=== PATIENT | female | born 1980 | race Caucasian/White ===

== ENCOUNTER 2020-05-26 05:59 | Emergency (ER) | payer OTHER, SELFPAY ==
--- NOTE | 2020-05-26 | XR_ITS ---
EXAMINATION: XR RIBS, RIGHT CLINICAL INFORMATION: Pain status-post fall. COMPARISON: Chest radiograph dated 06/03/2012 (report only). TECHNIQUE: 4 views of the left ribs were obtained. FINDINGS: Lungs are clear. No consolidation, pneumothorax, or pleural effusion. The cardiomediastinal silhouette and pulmonary vasculature are normal. Osseous structures are unremarkable. Ribs are intact. No fractures are identified. IMPRESSION: Unremarkable examination.
--- NOTE | 2020-05-26 | XR_ITS ---
EXAMINATION: CERVICAL SPINE AND RIGHT ELBOW X-RAY CLINICAL INFORMATION: Fall COMPARISON: None TECHNIQUE: 4 views of the cervical spine and 3 views of the right elbow FINDINGS: Right elbow: Bone alignment is normal. No fracture or dislocation is seen. The joint spaces are normal. There is no joint effusion. There is minimal soft tissue calcification or ossification adjacent to the lateral humeral epicondyle. There is a very small osteophyte at the triceps tendon insertion to the olecranon. Cervical spine: Bone alignment is normal. No fracture or dislocation is seen. The disc spaces are normal. Prevertebral soft tissues are normal. IMPRESSION: Cervical spine and right elbow: No fracture or dislocation seen.
--- NOTE | 2020-05-26 | XR_ITS ---
EXAMINATION: XR SHOULDER, RIGHT CLINICAL INFORMATION: Pain status-post fall. COMPARISON: None TECHNIQUE: AP external rotation and scapula Y views of the right shoulder are submitted. FINDINGS: The bones and soft tissues are normal. No fracture. Glenohumeral and acromioclavicular alignment is anatomic with normal joint space. No abnormal soft tissue calcifications. IMPRESSION: Normal right shoulder.
[2020-05-26 06:04] VITALS: BP 131/75; PULSE 78; RESP 16; TEMP 36.4; O2SAT 98
[2020-05-26 06:36] VITALS: PULSE 78; RESP 16; TEMP 36.4; O2SAT 98; BMI 29.7
--- NOTE | 2020-05-26 07:22 | ED.FALL ---
HPI - Fall General Chief Complaint: Fall Stated Complaint: FALL Time Seen by Provider: 05/26/20 07:22 Source: patient Mode of arrival: ambulatory Limitations: no limitations History of Present Illness HPI Narrative: patient tripped yesterday at home and fell landed on her right side between ladder and the floor hitting elbow to the ground c/o increased pain especially on extension of right elbow also complaining of pain in right shoulder and back of the right trunk no bruising no swelling no head injury no loss of consciousness Related Data Allergies Allergy/AdvReac Type Severity Reaction Status Date / Time No Known Allergies Allergy Unverified 05/04/20 17:58 Review of Systems Review of Systems: REVIEW OF SYSTEMS: Pertinent positives and negatives are stated above in the history. GEN: no fevers, chills, fatigue HEENT: no nasal congestion, sore throat, ear pain NEURO: no headache, dizziness, focal weakness PULM: no cough, shortness of breath CV: no chest pain, palpitations, LE edema ABD: no abdominal pain, nausea, vomiting, diarrhea : no dysuria, urgency, frequency SKIN: no rash ROS otherwise negative x 10 [facility] Social History Social History Alcohol intake: unknown Smoking Status: Never smoker Smoked in Last 30 Days: No Use of substances other than those prescribed or required for medical reasons: No Advance Directives: No Advance Directives Information Provided: No Physical Exam Vital Signs and I&O and Narrative: Vital Signs and I&O: Vital Signs Temp 97.6 F 05/26/20 06:36 Pulse 65 05/26/20 09:24 Resp 16 05/26/20 09:24 BP 119/75 05/26/20 09:24 Pulse Ox 98 05/26/20 09:24 Intake & Output 05/25/20 05/26/20 05/26/20 18:59 06:59 18:59 Weight 81.193 kg Body Mass Index 29.7 Appearance: Alert. Oriented X3. No acute distress. Eyes: Pupils equal, round and reactive to light. ENT: Pharynx normal. Neck: Normal inspection. Neck supple. CVS: Normal heart rate and rhythm. Pulses normal. Respiratory: No respiratory distress. Breath sounds normal. Right scapular moderate tenderness without any splinting Abdomen: Soft and nontender. Skin: Skin warm and dry. Normal skin color. Normal skin turgor. Extremities: No lower extremity edema. No lower extremity edema. tenderness at right elbow area especially on extension with no limitation or deformity. Diffuse right shoulder tenderness without any limitation of range of movement no deformity. Neuro: Oriented X 3. No motor deficit. No sensory deficit. Course Course Course Narrative: patient x-ray is negative for any fracture of right elbow right shoulder and right ribs patient still complaining of pain will put a splint posterior arm splint for support
[2020-05-26] MEDS: Morphine Sulfate 4 MG/ML CARTRIDGE IM (07:41)
[2020-05-26 07:55] VITALS: BP 124/78; PULSE 82; RESP 18
[2020-05-26 09:24] VITALS: BP 119/75; PULSE 65; RESP 16; O2SAT 98
== END 2020-05-26 10:46 | disposition home or self-care (01) ==
PROVIDERS: Emergency Provider Internal Medicine
DX: S59.901A Unspecified injury of right elbow, initial encounter (principal); M54.5 Low back pain; W11.XXXA Fall on and from ladder, initial encounter; Y93.9 Activity, unspecified; Y92.009 Unspecified place in unspecified non-institutional (private) residence as the place of occurrence of the external cause
CPT/HCPCS: 71101; 72040; 73030; 73080; 96372; 99284; J2270